=== PATIENT | female | born 1995 | race Two or more races ===

== ENCOUNTER 2020-01-22 18:51 | Emergency (ER) | payer OTHER, SELFPAY ==
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
[2020-01-22 19:02] VITALS: BP 124/76; BP 125/73; PULSE 88; RESP 16; TEMP 37.1; O2SAT 97; O2SAT 99; BMI 23.0
--- NOTE | 2020-01-22 19:34 | ECG_ITS ---
Test Reason : SOB Blood Pressure : / mmHG Vent. Rate : 080 BPM Atrial Rate : 080 BPM P-R Int : 136 ms QRS Dur : 082 ms QT Int : 392 ms P-R-T Axes : 057 054 042 degrees QTc Int : 452 ms Normal sinus rhythm Normal ECG No previous ECGs available Referred By: Katerina Cosme Electronically Signed By:JANAE MARCH MD
--- NOTE | 2020-01-22 19:55 | PC.NURSE ---
Pt to CT via stretcher. Previous to transfer to imaging EKG obtained and viewed by MD. Pt AOx4, reports pain to right side of body, denies LOC, reports she feels SOB only when laying down and only when attempting to take a deep breath. Sat 97-99% on room air. Pt placed on tele, NSR.
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
[2020-01-22 20:31] VITALS: PULSE 84; RESP 15; O2SAT 100
[2020-01-22 20:32] LABS: MANUAL DIFF FLAG NO
--- NOTE | 2020-01-22 20:35 | PC.NURSE ---
Pt back from CT via stretcher, speaking in full,clear sentences. IV access obtained, labs drawn and sent. Awaiting results of labs and imaging at this time.
[2020-01-22 20:53] LABS: Basophils Percent Auto 0.3 % (0-2); Eosinophils Percent Auto 0.6 % (0-4); Hematocrit 38.3 % (37-47); Hemoglobin 13.1 g/dl (12.0-16.0); Imm Gran Abs Auto 0.02 X10*3/uL (0.00-0.03); Imm Gran Pct Auto 0.3 % (0.0-0.4); Lymphocytes Absolute Auto 1.8 X10*3/uL (1.2-4.9); Lymphocytes Percent Auto 26.9 % (20-40); Mean Corpuscular HGB Conc 34.2 g/dl (31.0-35.0); Mean Corpuscular Hemoglobin 32.2 pg (27.0-33.0); Mean Corpuscular Volume 94.1 fL (80-98); Mean Platelet Volume 10.3 fL (9.4-12.3); Monocytes Absolute Auto 0.6 X10*3/uL (0.1-1.2); Monocytes Percent Auto 8.4 % (2-11); Neutrophils Absolute Auto 4.3 X10*3/uL (2.0-8.3); Neutrophils Percent Auto 63.5 % (45-73); Platelet Count 261 X10*3/uL (160-400); Red Blood Count 4.07 X10*6/uL (4.20-5.50); Red Cell Distribution Width 11.8 % (11.0-16.0); White Blood Count 6.8 X10*3/uL (4.8-10.8)
[2020-01-22 20:57] LABS: Anion Gap 14 (12-20); Blood Urea Nitrogen 9 mg/dL (9-16); Calcium 9.1 mg/dL (8.4-10.2); Carbon Dioxide 26 mmol/L (22-29); Chloride 107 mmol/L (96-108); Creatinine Clr Calc Pharmacy 98.8; Estimated Glomerular Filt Rate > 60; Glucose Random 95 mg/dL (60-115); Magnesium 2.4 mg/dL (1.6-2.6); Potassium 4.6 mmol/l (3.3-5.1); Sodium 142 mmol/L (135-145)
[2020-01-22] MEDS: Cyclobenzaprine HCl 10 MG TABLET PO (22:16)
== END 2020-01-22 22:21 | disposition home or self-care (01) ==
PROVIDERS: Nurse Practitioner Family; Emergency Provider Emergency Medicine
DX: S39.012A Strain of muscle, fascia and tendon of lower back, initial encounter (principal); S30.0XXA Contusion of lower back and pelvis, initial encounter; S06.0X0A Concussion without loss of consciousness, initial encounter; R07.89 Other chest pain; F41.1 Generalized anxiety disorder; F43.0 Acute stress reaction; F12.90 Cannabis use, unspecified, uncomplicated; R10.2 Pelvic and perineal pain; V43.52XA Car driver injured in collision with other type car in traffic accident, initial encounter; Y93.9 Activity, unspecified; Y92.410 Unspecified street and highway as the place of occurrence of the external cause; F17.200 Nicotine dependence, unspecified, uncomplicated; Z71.6 Tobacco abuse counseling
CPT/HCPCS: 36415; 70450; 71045; 71250; 72125; 74176; 80048; 83735; 85025; 93005; 99284; 99291

== ENCOUNTER 2020-04-13 16:34 | Outpatient (REF) | payer OTHER, SELFPAY | END 2020-04-13 16:35 | disposition home or self-care (01) | LOC: HO.LAB 16:34 | PROVIDERS: Visit Provider Internal Medicine | DX: Z20.828 Contact with and (suspected) exposure to other viral communicable diseases (principal) | CPT/HCPCS: C9803; U0003 ==

== ENCOUNTER 2020-08-26 09:27 | Emergency (ER) | payer OTHER, SELFPAY ==
[2020-08-26 09:37] VITALS: BP 106/63; PULSE 80; RESP 16; TEMP 37.2; O2SAT 99; BMI 23.8
--- NOTE | 2020-08-26 10:32 | ED.GENADULT ---
HPI - General Adult General Chief complaint: General Medical Stated complaint: MULTIP COMPLAINTS Time Seen by Provider: 08/26/20 09:45 Source: patient Mode of arrival: ambulatory Limitations: no limitations History of Present Illness HPI narrative: Patient presents to ED for fever past couple of days, runny nose, body aches, and slight headache. Patient states no coughing, chest pain, shortness of breath. Related Data Previous Rx's Medication Instructions Recorded cyclobenzaprine 10 mg PO TID PRN #20 tab 01/22/20 Allergies Allergy/AdvReac Type Severity Reaction Status Date / Time amoxicillin [AMOXICILLIN] Allergy Unknown UNKNOWN, Verified 01/22/20 19:05 unsure as a child Review of Systems Review of Systems: Yes all other systems are reviewed and are negative Constitutional: Constitutional: Reports as per HPI, Reports no additional constitutional complaints, Reports body ache(s), Reports fever(s) and Reports headache(s) Eyes: Eyes: Reports as per HPI and Reports no additional eye complaints ENT: Reports system reviewed and no additional complaints, except as documented, Reports as per HPI, Reports headache(s) and Reports nasal congestion Cardiovascular: Cardiovascular: Reports as per HPI and Reports no additional cardiovascular complaints Respiratory: Respiratory: Reports as per HPI and Reports no additional respiratory complaints Gastrointestinal: Gastrointestinal: Reports as per HPI and Reports no additional gastrointestinal complaints Genitourinary: Genitourinary: Reports no additional female genitourinary complaints and Reports as per HPI Musculoskeletal: Musculoskeletal: Reports no additional musculoskeletal complaints and Reports as per HPI Neurologic: Reports system reviewed and no additional complaints, except as documented, Reports as per HPI and Reports headache(s) Psychiatric: Psychiatric: Reports no additional psychiatric complaints and Reports as per HPI [facility] Social History Social History Alcohol intake: unknown Smoking Status: Current some day smoker Smoked in Last 30 Days: No Use of substances other than those prescribed or required for medical reasons: No Substance Use Type: Marijuana Any prior treatment program specific to substance use: No Advance Directives: Yes Advance Directives Information Provided: No Advance Directives on File: No Patient : No Physical Exam Vital Signs: Vital Signs: Last Vital Signs Temp 99.0 F 08/26/20 09:37 Pulse 80 08/26/20 09:37 Resp 16 08/26/20 09:37 BP 106/63 08/26/20 09:37 Pulse Ox 99 08/26/20 09:37 Body Mass Index 23.8 Const: General: cooperative, healthy appearing, comfortable, no acute distress, well developed, alert, awake and Physically active Orientation/consciousness: patient oriented x3 HENMT: Head: Yes normal to inspection, Yes No palpable skull fracture present, Yes normocephalic and Yes atraumatic Eyes: General: appearance normal, both eyes and all related structures Neck: Neck: Yes normal visual inspection, Yes full ROM, Yes no lymphadenopathy, Yes no meningeal signs, Yes trachea midline, Yes supple and No tender Chest: Chest palpation & inspection: normal inspection of the chest and normal palpation of entire chest wall Resp: Effort & Inspection: normal respiratory effort and able to speak in complete sentences Auscultation: clear to auscultation bilaterally Cardio: Jugular venous distension: no JVD Heart sounds: S1 normal heart sound present and S2 normal heart sound present GI: Inspection: Yes normal to inspection and No abdominal wall ecchymosis Palpation (GI): Soft to palpation, not firm, nontender, no guarding and not rigid : General: No CVA tenderness and Yes no CVA tenderness Back/Spine/Pelvis: Back: no CVA tenderness, No CVA tenderness and No back tenderness Skin: General skin exam: no rashes or lesions noted and elasticity normal Neuro: General: patient oriented x3, gait normal, no meningeal signs and CN's II-XI intact bilaterally Cranial nerves: Yes CN's II-XII intact bilaterally Extrem: General: Yes normal to inspection and Yes full ROM Psych: Appearance: grossly normal, well kempt and not disheveled Course Course Course Narrative: History physical exam does not indicate meningitis. Patient vital signs stable. Patient denies any distress. Lungs are clear no indication for chest x-ray. Patient having any abdominal pain or urinary symptoms. No labs are UA ordered. Reevaluation(s) Reevaluation #1: Patient will be swabbed for COVID-19 and discharge. Patient will prefer to be called with results. Reevaluation #2: Patient was called and informed she was positive for COVID. patient informed to practice self isolation for 14 days. patient informed to return to the ED for chest pain, shortness of breath, weakness, or any other concerning symptoms. Medical Decision Making Lab Data Labs: Lab Results 08/26/20 Range/Units 10:25 Coronavirus (PCR) POSITIVE A (Negative) Influenza Type A (PCR) NEGATIVE (Negative) Influenza Type B (PCR) NEGATIVE (Negative) RSV RNA Qual (PCR) NEGATIVE (Negative) Discharge Plan Discharge Clinical Impression: Acute viral syndrome, COVID-19 Patient Disposition: Home, Self-Care Instructions: Viral Syndrome (ED), COVID-19 (Coronavirus Disease 2019) (ED) Additional Instructions: Return to the ED immediately for any chest pain, shortness of breath, neck stiffness, severe headache, photophobia, abdominal pain, urinary symptoms, or any other concerning symptoms. Your COVID swab is pending. You will be called with results. If COVID swab comes back negative and you are still symptomatic or feeling worse recommend repeat testing in 72 hours or self quarantine for 14 days. If COVID test come back positive recommend 14 days self-isolation. Prescriptions: No Action cyclobenzaprine 10 mg tablet 10 mg PO TID PRN (Reason: muscle spasm) Qty: 20 RF: 0 Stand Alone Forms: Work/School Release Interventions: ED Discharge Assessment Last Done: 08/26/20 11:02 Discharge Date/Time: 08/26/20 11:03 Print Language: Bulgarian
[2020-08-26 11:47] LABS: Influenza A PCR NEGATIVE (Negative); Influenza B PCR NEGATIVE (Negative); Resp Syncy Virus RNA Qual PCR NEGATIVE (Negative); SARS COV2 PCR INHOUSE POSITIVE (Negative)
== END 2020-08-26 11:03 | disposition home or self-care (01) ==
PROVIDERS: Physician Assistant; Emergency Provider Emergency Medicine
DX: U07.1 COVID-19 (principal); M79.10 Myalgia, unspecified site; Z79.899 Other long term (current) drug therapy; F17.200 Nicotine dependence, unspecified, uncomplicated; Z71.6 Tobacco abuse counseling
CPT/HCPCS: 0241U; 36415; 99284

== ENCOUNTER 2021-05-27 06:52 | Emergency (ER) | payer OTHER, SELFPAY ==
--- NOTE | ~2021-05-27 | XR_ITS ---
EXAMINATION: CR HAND, LEFT CLINICAL INFORMATION: Left fourth digit laceration at distal phalanx and pain. Smash injury to the left hand. COMPARISON: Contralateral right hand films from 02/13/2017. TECHNIQUE: PA, lateral, and oblique views of the left hand. FINDINGS: Soft tissue laceration over the tuft of the fourth digit is seen without evidence of radiopaque foreign body or acute fracture or dislocation. Mild soft tissue swelling about the distal phalanx of the fourth digit is seen. Otherwise unremarkable study. XR/XR hand LT min 3V IMPRESSION: Mild soft tissue swelling and soft tissue laceration over the distal phalanx of the fourth digit is seen. No radiopaque foreign body or acute fracture noted.
[2021-05-27 07:40] VITALS: BP 103/59; PULSE 91; RESP 19; TEMP 36.6; O2SAT 99; BMI 27.4
--- NOTE | 2021-05-27 08:42 | ED_ITS ---
HPI - Wound/Laceration General Chief Complaint: Wound/Laceration Stated Complaint: lac on finger @ work Time Seen by Provider: 05/27/21 08:42 Source: patient Mode of arrival: ambulatory Limitations: no limitations History of Present Illness HPI narrative: Patient is a 26 year old female presenting to the emergency department today with a left ring finger laceration. Patient states that she works at [employer] and got her left ring finger smashed in a machine. Patient denies any other injury from the incident. Patient denies any loss of consciousness from the incident. Patient denies any numbness, tingling, dizziness, lightheadedness, abdominal pain, nausea, vomiting, fever, chills, blurry vision, double vision, loss of vision, chest pain, difficulty breathing, shortness of breath, back pain, night sweats, pain with urination, increased urinary frequency, increased urinary urgency, blood in her urine or stool, syncope or a near syncopal episode, bowel incontinence, bladder incontinence, bowel retention, bladder retention, or any other complaints at this time. Onset (ago): minute(s) Location: other (left ring finger) Context: accidental Associated symptoms: none Treatments prior to arrival: bandage Related Data Previous Rx's Medication Instructions Recorded cyclobenzaprine 10 mg tablet 10 mg PO TID PRN #20 tab 01/22/20 cephalexin 500 mg capsule 500 mg PO Q6H 7 Days #28 cap 05/27/21 Allergies Allergy/AdvReac Type Severity Reaction Status Date / Time amoxicillin [AMOXICILLIN] Allergy Unknown UNKNOWN, Verified 01/22/20 19:05 unsure as a child Review of Systems Constitutional: Constitutional: Reports no additional constitutional complaints, Denies chills, Denies fever(s) and Denies night sweats Eyes: Eyes: Reports no additional eye complaints, Denies blurry vision, Denies change in vision, Denies diplopia, Denies eye discharge, Denies loss of vision and Denies eye pain ENT: Denies dizziness Cardiovascular: Cardiovascular: Reports no additional cardiovascular complaints, Denies chest pain, Denies lightheadedness, Denies Loss of Consciousness and Denies dyspnea Respiratory: Respiratory: Reports no additional respiratory complaints and Denies dyspnea Gastrointestinal: Gastrointestinal: Reports no additional gastrointestinal complaints, Denies abdominal pain, Denies melena, Denies hematochezia, Denies change in bowel habits and Denies change in stool character Genitourinary: Genitourinary: Denies hematuria, Denies urinary frequency, Denies dysuria, Denies urinary incontinence, Denies urinary hesitancy and Denies urinary urgency Musculoskeletal: Musculoskeletal: Reports no additional musculoskeletal complaints, Denies numbness and Denies tingling Integumentary/Breasts: Comments: left ring finger laceration Neurologic: Denies dizziness, Denies loss of vision, Denies numbness and Denies tingling Psychiatric: Psychiatric: Reports no additional psychiatric complaints Endocrine: Endocrine: Reports no additional endocrine complaints Hematologic/Lymphatic: Hematologic/Lymphatic: Reports no additional hematol ogic/lymphatic complaints Allergic/Immunologic: Allergic/Immunologic: Reports no additional allergic/immunologic complaints [facility] Past Medical History Attestation statement: The following information was validated with the patient. Source: old records reviewed Social History Social History Alcohol intake: unknown Substance Use Type: Marijuana Advance Directives: No Advance Directives Information Provided: No Physical Exam Vital Signs: Vital Signs: Last Vital Signs Temp 98 F 05/27/21 07:40 Pulse 91 05/27/21 07:40 Resp 19 05/27/21 07:40 BP 103/59 L 05/27/21 07:40 Pulse Ox 99 05/27/21 07:40 BMI result Body Mass Index 27.4 Const: General: cooperative, no acute distress, alert and awake Nutritional Appearance: well nourished Orientation/consciousness: patient oriented x3 Limitations: no limitations HENMT: Head: Yes normal to inspection and Yes atraumatic Ears: hearing grossly normal bilaterally and external ears normal General nose exam: Normal external nose present, no nasal discharge noted and no epistaxis Face and sinus: Yes normal facial exam, No abrasion and No laceration Mouth: Normal oral and palatal mucosa present, no drooling and no muffled voice Eyes: General: appearance normal, both eyes and all related structures Periorbital: periorbital findings normal Eyelids: Yes eyelids normal Conjunctivae: conjunctivae normal Pupils: Equal, round and reactive pupils present EOM: EOMs intact bilaterally Neck: Neck: Yes normal visual inspection, Yes full ROM and Yes no lymphadenopathy Chest: Chest palpation & inspection: normal inspection of the chest Resp: Effort & Inspection: normal respiratory effort and able to speak in complete sentences GI: Inspection: Yes normal to inspection Skin: Trauma: laceration left 4th finger linear, superficial, motor nerve function intact and sensation intact Neuro: General: patient oriented x3 and moves all extremities Cranial nerves: Yes Equal, round and reactive pupils present Cognition (Neuro): normal cognition Motor exam (neuro): 5/5 motor strength present throughout Sensory Exam: Normal double simultaneous stimulation for sensation Coordination: [id number] test normal Extrem: General: Yes normal to inspection, Yes full ROM and Yes capillary refill normal Psych: Appearance: grossly normal Mental Status: mental status grossly normal Affect: normal affect Attitude: cooperative Thought process: Normal thought process present Thought content: Normal thought content present Insight: Good insight present (Psych) MDM - Wound/Laceration MDM Narrative Medical decision making narrative: Patient is a 26 year old female presenting to the emergency department today with a left ring finger laceration. Patient's physical exam showed a 1cm superficial laceration to the tip of the left ring finger. There was no active bleeding from the laceration. Patient's PMS was intact to the left upper extremity. Patient's left hand x-ray showed no acute tori process. I explained my physical exam findings as well as all test results to the patient. I answered all questions asked by the patient. Patient was brought up to date on her tetanus. Patient's laceration was repaired, per procedure note, without incident. I stressed the importance of the patient taking her antibiotic as prescribed. I stressed the importance of the patient NOT soaking the sutured area. I stressed the importance of the patient having her sutures removed within 10-14 days. I stressed the importance of the patient following up with her primary care provider. I stressed the importance of the patient returning to the emergency department immediately if her symptoms were to worsen or if she were to develop any dizziness, shortness of breath, difficulty breathing, chest pain, blurry vision, loss of vision, nausea, vomiting, abdominal pain, fever, chills, back pain, or any other complaints. Patient verbalized agreement and understanding with this treatment plan and discharge. Differential Diagnosis Differential diagnosis: Likely laceration, abrasion and avulsion of skin Medical Records Attestation: I reviewed the patient's medical records. Imaging Data left hand x-ray: Attestation: I personally reviewed and interpreted this imaging study as follows: Radiologist's impression: EXAMINATION: CR HAND, LEFT CLINICAL INFORMATION: Left fourth digit laceration at distal phalanx and pain. Smash injury to the left hand.? COMPARISON: Contralateral right hand films from 02/13/2017.? TECHNIQUE: PA, lateral, and oblique views of the left hand. FINDINGS: Soft tissue laceration over the tuft of the fourth digit is seen without evidence of radiopaque foreign body or acute fracture or dislocation. Mild soft tissue swelling about the distal phalanx of the fourth digit is seen. Otherwise unremarkable study.? XR/XR hand LT min 3V IMPRESSION: Mild soft tissue swelling and soft tissue laceration over the distal phalanx of the fourth digit is seen. No radiopaque foreign body or acute fracture noted. Dictated By: Valerie Ohara MD Signed By: Electronically signed by Valerie Ohara MD 05/27/21 Procedures Laceration Laceration 1: Site: other (ring finger) Side (If applicable): left Size (cm): 1 Description: linear Depth: simple, single layer Local Anesthetic: lidocaine 2% and with epi Amount of anesthesia used (mL): 5 Pre-repair: irrigated extensively and deep structures intact Skin layer closed with: nylon Size (cm): 6-0 Number of sutures: 3 Technique: simple, interrupted Discharge Plan Discharge Clinical Impression: Laceration of finger Patient Disposition: Home, Self-Care Instructions: Laceration (ED), Laceration (DC), Finger Laceration (ED) Additional Instructions: Have your sutures removed in 10-14 days. Do NOT soak the sutured area. Follow up with your primary care provider. Return to the emergency department immediately if your symptoms worsen or if you develop any dizziness, shortness of breath, difficulty breathing, chest pain, blurry vision, loss of vision, nausea, vomiting, abdominal pain, fever, chills, back pain, or any other complaints. Prescriptions: New cephalexin 500 mg capsule 500 mg PO Q6H 7 Days Qty: 28 0RF No Action cyclobenzaprine 10 mg tablet 10 mg PO TID PRN (Reason: muscle spasm) Qty: 20 0RF Stand Alone Forms: Work/School Release Print Language: Pashto
[2021-05-27] MEDS: Diphth,Pertus(ACell),Tet Adult 0.5 ML SYRINGE IM (10:11)
[2021-05-27] MEDS: Lidocaine HCl 2%/Epi 1:100,000 20 ML VIAL INFILTRATI (10:12)
[2021-05-27] MEDS: Bacitracin Oint 14 GM TUBE 1 APPL TOPICAL (10:12)
== END 2021-05-27 10:24 | disposition home or self-care (01) ==
PROVIDERS: Emergency Provider Emergency Medicine Emergency Medical Services
DX: S61.215A Laceration without foreign body of left ring finger without damage to nail, initial encounter (principal); W31.89XA Contact with other specified machinery, initial encounter; Y93.89 Activity, other specified; Y92.59 Other trade areas as the place of occurrence of the external cause; Y99.0 Civilian activity done for income or pay
CPT/HCPCS: 12001; 73130; 90471; 90715; 96372; 99283; 99284

== ENCOUNTER 2021-10-21 06:36 | Emergency (ER) | payer OTHER, SELFPAY ==
--- NOTE | ~2021-10-21 | CT_ITS ---
EXAMINATION: CT BRAIN, CT CERVICAL SPINE AND CT FACIAL BONES. CLINICAL INFORMATION: Trauma. COMPARISON: None TECHNIQUE: 5 mm thin axial and reformatted 2 mm thin sagittal and coronal images of brain were obtained. Axial 3 mm thin and reformatted 2 mm thin sagittal coronal images of cervical spine were obtained. Axial 3 mm thin and reformatted 1.5 mm thin sagittal and coronal images of facial bones were obtained. DLP 1448 mGy/cm. FINDINGS: Brain: There is no acute intra-axial, extra-axial bleed, masses or midline shift. There is no acute infarction evolution. The lateral ventricles are symmetrical in size and configuration without enlargement. The munguia to white matter differentiation is maintained normal. Bone windows reveal no calvarial abnormality. Bilateral paranasal sinuses and mastoid air cells are well-aerated. Scalp soft tissues are normal. Facial bones: There is small polyp or retention cyst floor of left maxillary sinus residual sinuses are well-aerated and clear. Bony sinus james are intact. The lamina papyracea and the cribriform plate is normal. There is obstructed right ostiomeatal complex from mucoperiosteal thickening. There is mucosal thickening in the right middle meatus are polyp. The nasal bone is intact with no visible fracture. There is no maxillofacial, zygoma or orbital fracture. Bilateral optic globes and optic nerve and intraorbital space are symmetric and normal. There is minimal right preseptal right orbital soft tissue swelling. The TM joints are symmetrical and normal. There is no fracture involving the mandible. There is no periapical cyst. Premandibular soft tissues are normal. Visualized nasopharyngeal, pharyngeal and laryngeal airway is widely patent. No abnormality seen in the oral cavity except for significant artifact from the dental hardware. Cervical spine: There is mild straightening of cervical lordosis. The vertebral heights, alignment and disc heights are normal. There is no visible acute fracture, dislocation or subluxation. The craniovertebral junction and the C1-C2 alignment is normal. No visible acute fracture, dislocation or subluxation seen. The prevertebral soft tissues are normal. The lung apices are clear. CT/CT cervical spine wo con IMPRESSION: No acute intracranial process seen. There is no maxillofacial, nasal or mandibular fractures. However there is mild right periorbital preseptal soft tissue swelling. No orbital fracture or intraorbital soft tissue swelling. Mild straightening of cervical lordosis likely spasm or positional. No visible acute fracture or dislocation.
[2021-10-21 06:40] VITALS: BP 117/72; PULSE 111; RESP 18; TEMP 37.1; O2SAT 98; BMI 25.6
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
== END 2021-10-21 09:18 | disposition home or self-care (01) ==
PROVIDERS: Emergency Provider Emergency Medicine
DX: S09.90XA Unspecified injury of head, initial encounter (principal); Y04.2XXA Assault by strike against or bumped into by another person, initial encounter; Y93.9 Activity, unspecified; Y92.9 Unspecified place or not applicable; Y99.9 Unspecified external cause status
CPT/HCPCS: 70450; 70486; 72125; 99282; 99284

== ENCOUNTER 2023-04-12 09:16 | Emergency (ER) | payer SELFPAY ==
[2023-04-12 09:31] VITALS: BP 121/77; PULSE 90; RESP 18; TEMP 36.6; O2SAT 99; BMI 27.3
--- NOTE | 2023-04-12 10:11 | MHC.EDTECH ---
No answer for [facility] at [id number]
--- NOTE | 2023-04-12 11:45 | MHC.EDTECH ---
no answer at [id number]
== END 2023-04-12 11:55 | disposition left against medical advice (07) ==
LOC: HO.ED 11:54
PROVIDERS: Emergency Provider Emergency Medicine
DX: R11.0 Nausea (principal); R42 Dizziness and giddiness
CPT/HCPCS: 99281

== ENCOUNTER 2023-07-01 19:37 | Emergency (ER) | payer SELFPAY ==
[2023-07-01 19:46] VITALS: BP 149/98; PULSE 65; RESP 17; TEMP 36.7; O2SAT 98; BMI 27.5
== END 2023-07-02 00:23 | disposition left against medical advice (07) ==
PROVIDERS: Emergency Provider Emergency Medicine
DX: M79.604 Pain in right leg (principal); M79.605 Pain in left leg
CPT/HCPCS: 99281

== ENCOUNTER 2023-08-11 08:00 | Emergency (ER) | payer SELFPAY ==
[2023-08-11 08:04] VITALS: BP 110/87; PULSE 66; RESP 18; TEMP 36.6; O2SAT 98; BMI 23.8
[2023-08-11 08:19] LABS: MANUAL DIFF FLAG NO
[2023-08-11 08:21] LABS: Basophils Percent Auto 0.2 % (0-2); Eosinophils Percent Auto 0.1 % (0-4); Hematocrit 39.8 % (37.0-47.0); Hemoglobin 13.8 g/dl (12.0-16.0); Imm Gran Abs Auto 0.04 X10*3/uL (0.00-0.03); Imm Gran Pct Auto 0.3 % (0.0-0.4); Lymphocytes Absolute Auto 1.7 X10*3/uL (1.2-4.9); Mean Corpuscular HGB Conc 34.7 g/dl (31.0-35.0); Mean Corpuscular Hemoglobin 31.7 pg (27.0-33.0); Mean Corpuscular Volume 91.3 fL (80.0-98.0); Mean Platelet Volume 9.9 fL (9.4-12.3); Monocytes Absolute Auto 0.4 X10*3/uL (0.1-1.2); Monocytes Percent Auto 3.1 % (2-11); Neutrophils Percent Auto 82.3 % (45-73); Platelet Count 274 X10*3/uL (160-400); Red Blood Count 4.36 X10*6/uL (4.20-5.50); Red Cell Distribution Width 12.3 % (11.0-16.0); White Blood Count 12.2 X10*3/uL (4.8-10.8)
[2023-08-11] MEDS: 0.9 % Sodium Chloride 1,000 ML 999 ML IVCONT (08:22)
[2023-08-11] MEDS: ondansetron HCL 4 MG/2 ML VIAL IVPUSH ×2 (08:22→08:50)
[2023-08-11 08:33] LABS: Alanine Aminotransferase 18 U/L (0-31); Albumin Level 4.7 g/dL (3.5-5.0); Alkaline Phosphatase 49 U/L (39-117); Anion Gap 14 (12-20); Aspartate Amino Transferase 21 U/L (5-31); Bilirubin Total 0.4 mg/dL (0.0-1.0); Blood Urea Nitrogen 15 mg/dL (9-16); Calcium 9.4 mg/dL (8.4-10.2); Carbon Dioxide 27 mmol/L (22-29); Chloride 105 mmol/L (96-108); Creatinine Clr Calc Pharmacy 102.4; Estimated Glomerular Filt Rate > 60; Glucose Random 115 mg/dL (60-115); Lipase 11 U/L (8-78); Potassium 4.1 mmol/L (3.3-5.1); Sodium 142 mmol/L (135-145); Total Protein 7.9 g/dL (6.5-8.0)
--- NOTE | 2023-08-11 08:38 | ED_ITS ---
HPI - Abdominal Pain General Chief Complaint: Abdominal Pain Stated Complaint: Vomiting, nausea Time Seen by Provider: 08/11/23 08:07 Source: patient Mode of arrival: ambulatory History of Present Illness HPI narrative: 28-year-old female reports that she has had similar issues with nausea and vomiting previously, and reports that spicy food generally causes epigastric pain and discomfort, states that she was consuming alcohol yesterday but not a lot and then woke up with nausea and vomiting today associated with epigastric pain but denies any hematemesis, fevers, chills, diarrhea, urinary symptoms. Related Data Home Medications ?Medication ?Instructions ?Recorded ?Confirmed No Known Home Meds 08/31/22 08/31/22 Allergies Allergy/AdvReac Type Severity Reaction Status Date / Time amoxicillin [AMOXICILLIN] Allergy Unknown UNKNOWN, Verified 08/11/23 08:04 unsure as a child Review of Systems Review of Systems Pertinent positives and negatives as stated in HPI PMFSH Past Medical History Source: nursing notes reviewed Surgical History No pertinent past surgical history Family History Family History Mother Lupus Maternal Grandmother Lupus Father No problems noted. Social History Social History Housing: Apartment Alcohol intake: current Alcohol intake frequency: a few times a month Patient Tobacco Use Status: Current everyday Tobacco user e-Cigarette/Vaping Use: Currently Using Second Hand Smoke Exposure: No Substance Use Type: Marijuana Advance Directives: No Advance Directives Information Provided: No Do you have a plan to hurt others: No Plan service: No Current occupational status: employed Current occupation: Machine opreateor Cognitive needs: No Hearing needs: No Vision needs: No Physical Exam ED Vital Signs: Vital Signs - 24 hr 08/11/23 08:04 08/11/23 09:55 Temperature 97.9 F Pulse Rate 66 88 Respiratory Rate 18 16 Blood Pressure 110/87 105/76 Pulse Oximetry 98 100 Oxygen Delivery Method Room Air Room Air BMI result Body Mass Index 23.8 VITAL SIGNS: Reviewed. GENERAL: Well developed, well nourished, in no acute distress. HEAD: Normocephalic/atraumatic EYES: PERRLA, EOMI EARS: Ext canals without abnormality NOSE: Nares patent bilateral OROPHARYNX: no oral lesions noted, posterior pharynx clear NECK: Supple, no adenopathy LUNGS: Normal breath sounds. No adventitious sounds or accessory muscle use. SpO2<98> CARDIOVASCULAR: Regular rate and rhythm without noted murmurs ABDOMEN: Soft, epigastric discomfort, non-distended with bowel sounds. MUSCULOSKELETAL: No tenderness, deformities, or effusions noted on gross inspection. EXTREMITIES: No cyanosis, clubbing or edema. SKIN: Inspection of the skin reveals no rashes NEUROLOGIC: Alert and oriented x 4. Strength and sensation to light touch were grossly intact x 4. Medical Decision Making Medical Decision Making [facility] Narrative: 28-year-old female with history and clinical presentation, DDX: Alcoholic gastritis, pancreatitis, no clinical suspicion for intra-abdominal infection or UTI. INTERVENTION: 1 L IV fluids, Zofran, Pepcid. I reviewed all investigations and hematologic indices demonstrate a noninfectious leukocytosis likely reactive from the nausea and vomiting otherwise no anemia or thrombocytopenia. Chemistry indices negative for AMAURY/electrolyte or liver enzyme derangements. Urinalysis negative for UTI in ketones reflective of likely component of dehydration. On re-evaluation patient is feeling much better, tolerating oral intake and was provided with GI cocktail and Carafate and is feeling much improved. She is otherwise discharged. Differential Diagnosis Differential Diagnoses: The differential diagnosis associated with the presentation includes Please see the discussion above Admission/Observation Consideration of admission/observation: Escalation of care including admission/observation considered Please see the discussion above Lab Data [facility] Lab Attestation statement: I reviewed the patient's lab results. Please see the discussion above 08/11/23 08:15 08/11/23 08:15 Labs: Lab Results 08/11/23 08/11/23 Range/Units 08:15 10:39 WBC 12.2 H (4.8-10.8) X10*3/uL RBC 4.36 (4.20-5.50) X10*6/uL Hgb 13.8 (12.0-16.0) g/dl Hct 39.8 (37.0-47.0) % MCV 91.3 (80.0-98.0) fL MCH 31.7 (27.0-33.0) pg MCHC 34.7 (31.0-35.0) g/dl RDW 12.3 (11.0-16.0) % Plt Count 274 (160-400) X10*3/uL MPV 9.9 (9.4-12.3) fL Immature Gran % (Auto) 0.3 (0.0-0.4) % Neut % (Auto) 82.3 H (45-73) % Lymph % (Auto) 14.0 L (20-40) % Gilchrist % (Auto) 3.1 (2-11) % Eos % (Auto) 0.1 (0-4) % Baso % (Auto) 0.2 (0-2) % Lymph # (Auto) 1.7 (1.2-4.9) X10*3/uL Gilchrist # (Auto) 0.4 (0.1-1.2) X10*3/uL Eos # (Auto) 0.0 (0.0-0.4) X10*3/uL Baso # (Auto) 0.0 (0.0-0.2) X10*3/uL Abs Immat Gran (auto) 0.04 H (0.00-0.03) X10*3/uL Absolute Neuts (auto) 10.0 H (2.0-8.3) x10*3/uL Absolute Nucleated RBC 0.000 (0.0-0.012) X10*3/uL Nucleated RBC % (auto) 0.0 (0.0-0.2) /100WBC Sodium 142 (135-145) mmol/L Potassium 4.1 (3.3-5.1) mmol/L Chloride 105 (96-108) mmol/L Carbon Dioxide 27 (22-29) mmol/L Anion Gap 14 (12-20) BUN 15 (9-16) mg/dL Creatinine 0.67 (0.5-1.4) mg/dL Estim Creat Clear Calc 102.4 Estimated GFR > 60 Random Glucose 115 (60-115) mg/dL Calcium 9.4 (8.4-10.2) mg/dL Total Bilirubin 0.4 (0.0-1.0) mg/dL AST 21 (5-31) U/L ALT 18 (0-31) U/L Alkaline Phosphatase 49 (39-117) U/L Total Protein 7.9 (6.5-8.0) g/dL Albumin 4.7 (3.5-5.0) g/dL Lipase 11 (8-78) U/L Urine Color Yellow Urine Appearance Clear Urine pH 8.0 (5.0-9.0) Ur Specific [place] >= 1.030 H (1.005-1.025) Urine Protein 30 (1+) H (Neg-Trace) mg/dL Urine Glucose (UA) Negative (Negative) mg/dL Urine Ketones >=160 (Negative) mg/dL Urine Blood Negative (Negative) Urine Nitrite Negative (Negative) Ur Leukocyte Esterase Negative (Negative) External Record Review External record reviewed: Outpatient record and Prior outpatient labs Medications Administered Discontinued Medications Generic Name Dose Route Start Last Admin Trade Name Freq PRN Reason Stop Dose Admin Al Hydroxide/Mg Hydroxide 30 ml 08/11/23 09:55 08/11/23 10:20 Magnesium Hydrox/Alum Hydrox 30 Ml Oral.Susp PO 08/11/23 09:56 30 ml ONCE ONE Administration Famotidine 20 mg 08/11/23 08:30 08/11/23 08:50 Famotidine/Pf 20 Mg/2 Ml Vial IVPUSH 08/11/23 08:31 20 mg ONCE ONE Administration Sodium Chloride 1,000 mls @ 999 mls/hr 08/11/23 08:30 08/11/23 09:50 Ns IVCONT 08/11/23 09:30 Infused .Q1H1M HENRIK Infusion Lidocaine HCl 10 ml 08/11/23 09:55 08/11/23 10:20 Lidocaine Hcl Viscous 2 % 15 Ml Solution MUCOUS MEM 08/11/23 09:56 10 ml ONCE ONE Administration Ondansetron HCl 4 mg 08/11/23 08:18 08/11/23 08:22 Ondansetron Hcl 4 Mg/2 Ml Vial IVPUSH 08/11/23 08:19 4 mg ONCE ONE Administration Ondansetron HCl 4 mg 08/11/23 08:40 08/11/23 08:50 Ondansetron Hcl 4 Mg/2 Ml Vial IVPUSH 08/11/23 08:41 4 mg ONCE ONE Administration Sucralfate 1 gm 08/11/23 09:55 08/11/23 10:20 Sucralfate Oral Suspension 1 Gm/10 Ml Oral.Susp PO 08/11/23 09:56 1 gm ONCE ONE Administration Critical Care Time Critical Care Time Critical Care Time: Yes Total Critical Care Time: 30 Attestation: I personally attest to this time spent taking care of the patient. Discharge Plan Discharge Clinical Impression: Alcoholic gastritis Patient Disposition: Home, Self-Care Instructions: Gastritis (ED), Diet for Stomach Ulcers and Gastritis (ED) Additional Instructions: Recommend [id number] famotidine, daily, for stomach upset and also attempt to avoid all carbonated/caffeinated/fried/spicy foods until stomach has improved. Prescriptions: No Action No Known Home Meds Print Language: Croatian
[2023-08-11] MEDS: Famotidine/PF 20 MG/2 ML VIAL IVPUSH (08:50)
--- NOTE | 2023-08-11 09:34 | PC.NURSE ---
PT STATES NAUSEA AND PAIN HAVE SUBSIDED. TRIALING PO, AWAITING URINE SPECIMEN.
[2023-08-11 09:55] VITALS: BP 105/76; PULSE 88; RESP 16; O2SAT 100
[2023-08-11] MEDS: Magnesium Hydrox/Alum Hydrox 30 ML ORAL.SUSP PO (10:20)
[2023-08-11] MEDS: Lidocaine HCl Viscous 2 % 15 ML SOLUTION 10 ML MUCOUS MEM (10:20)
[2023-08-11] MEDS: Sucralfate Oral Suspension 1 GM/10 ML ORAL.SUSP PO (10:20)
[2023-08-11 10:49] LABS: Appearance Urine Clear; Color Urine Yellow; Glucose Urine UA Negative (Negative); Leukocyte Esterase Urine Negative (Negative); Nitrite Urine Negative (Negative); Specific Gravity - Urine >= 1.030 (1.005-1.025); UMIC TRIGGER UACC YES; Urine Blood Negative (Negative); Urine Ketones >=160 mg/dL (Negative); Urine Protein 30 (1+) mg/dL (Neg-Trace)
[2023-08-11 10:57] LABS: Bacteria Urine None Seen (None Seen); Hyaline Casts Urine 0-2 /LPF (0-2); WBC Urine 0-5 /HPF (0-5)
[2023-08-11 11:00] LABS: RBC Urine 0-2 /HPF (0-2)
[2023-08-11 11:04] VITALS: BP 105/76; PULSE 88; RESP 16; TEMP 36.8; O2SAT 100
== END 2023-08-11 11:05 | disposition home or self-care (01) ==
PROVIDERS: Emergency Provider Student in an Organized Health Care Education/Training Program
DX: K29.20 Alcoholic gastritis without bleeding (principal)
CPT/HCPCS: 36415; 80053; 81001; 83690; 85025; 96361; 96374; 96375; 99284; J2405

== ENCOUNTER 2023-12-30 11:06 | Outpatient (AMB) | payer BC, SELFPAY ==
[2023-12-30 11:32] VITALS: BP 118/70; PULSE 64; O2SAT 97; BMI 22.5
--- NOTE | 2023-12-30 11:32 | MHC.OFFWIV ---
Intake Vital Signs 12/30/23 11:32 Height 5 ft 3 in Weight 127 lb BMI 22.5 BP 118/70 Blood Pressure Location Rt brachial Position Sitting Pulse 64 Pulse Source Pulse Oximeter Pulse Oximetry (%) 97 Oxygen Delivery Method Room Air Intake Visit Reasons: EP LT calf rash Intake Note: Patient here for rash on back of both legs that started two days ago and started off very itchy and now it solares. Patient Tobacco Use Status: Current everyday Tobacco user Allergies amoxicillin [AMOXICILLIN] Allergy (Unknown, Verified 12/30/23 11:33) UNKNOWN, unsure as a child Do you need a note to return to daycare/school/sports/work: No HPI EP LT calf rash HPI Details This note is constructed using voice recognition software. While every effort has been made to ensure accuracy, wire harness design engineer errors may have been included. The patient is a 28 year old female who presents to the clinic today with rash for the past two days. At first she thought it may be poison surya due to presentation, but does not recall any exposure. She started with raised red, itchy blisters, which itching they ended up being slightly burning in sensation. She denies fevers, chills, body aches, new lotions, soaps, detergents or foods. [facility] Surgical History No pertinent past surgical history Family History Mother Lupus Maternal Grandmother Lupus Father No problems noted. Social History Housing: Apartment Alcohol intake: current Alcohol intake frequency: a few times a month Patient Tobacco Use Status: Current everyday Tobacco user e-Cigarette/Vaping Use: Currently Using Second Hand Smoke Exposure: No Substance Use Type: Marijuana service: No Current occupational status: employed Current occupation: Machine opreateor Cognitive needs: No Hearing needs: No Vision needs: No Female Reproductive History Menstrual Age of Menarche: 9 Review of Systems Const All systems reviewed & are unremarkable except as noted in HPI and below Physical Exam Vital Signs: Last Vital Signs Pulse 64 12/30/23 11:32 BP 118/70 12/30/23 11:32 Pulse Ox 97 12/30/23 11:32 Oxygen Delivery Method Room Air 12/30/23 11:32 BMI result Body Mass Index 22.5 Const General: cooperative, healthy appearing, comfortable and no acute distress Orientation/consciousness: patient oriented x3 Limitations: no limitations HEENT Head: Yes normal to inspection Eyes General: appearance normal, both eyes and all related structures Resp Effort & Inspection: normal respiratory effort and able to speak in complete sentences Skin Other: A streaky, linear maculopapular rash with crusted lesions on each lower extremity on the calf bilaterally. Neuro General: patient oriented x3 Assessment & Plan Assessment & Plan (1) Poison surya dermatitis: Code(s): L23.7 - Allergic contact dermatitis due to plants, except food Plan: Topical steroid cream clobetasol prescribed for symptomatic management. Advised patient to continue to monitor for improvement versus any worsening. Advised follow up as needed. Plan See above for full details and plan. Medications: New clobetasol 0.05% 1 appl topical BID 1 week 15 grams 0RF Coding Level of Care Code Est Pt Level 3 (42740) Diagnoses Poison surya dermatitis L23.7
== END 2023-12-30 12:22 | disposition home or self-care (01) ==
PROVIDERS: Visit Provider Registered Nurse
DX: L23.7 Allergic contact dermatitis due to plants, except food (principal)

== ENCOUNTER → 2023-12-30 11:06 | Outpatient (BNVA) | payer BC, SELFPAY | DX: L23.7 Allergic contact dermatitis due to plants, except food (principal) ==

== ENCOUNTER → 2024-05-09 10:46 | Outpatient (BNVA) | payer BC, SELFPAY | DX: L03.116 Cellulitis of left lower limb (principal); Z23 Encounter for immunization | CPT/HCPCS: 90471; 90715 ==

== ENCOUNTER 2024-05-15 18:22 | Emergency (ER) | payer BC, SELFPAY ==
--- NOTE | 2024-05-15 18:31 | ED.EYEPROB ---
HPI - Eye Problem General Chief complaint: Eye Problems Stated complaint: R eye swelling Time Seen by Provider: 05/15/24 18:37 Source: patient Mode of arrival: ambulatory Limitations: no limitations History of Present Illness ED Provider: Malou Acevedo APRN HPI Narrative: 29yo female here with complaints of right upper eyelid swelling with waking. No known injury or trauma. Does not use corrective lenses or glasses. No vision changes, drainage, itching. Related Data Previous Rx's ?Medication ?Instructions ?Recorded doxycycline hyclate 100 mg capsule 100 mg PO BID 7 days #14 caps 05/09/24 prednisone 20 mg tablet 20 mg PO DAILY #5 tabs 05/09/24 erythromycin 5 mg/gram (0.5 %) eye 0.5 inch ophthalmic (eye) BID #3.5 05/15/24 ointment grams sulfamethoxazole 800 1 tab PO BID #14 tabs 05/15/24 mg-trimethoprim 160 mg tablet (Bactrim DS) Allergies Allergy/AdvReac Type Severity Reaction Status Date / Time amoxicillin [AMOXICILLIN] Allergy Unknown UNKNOWN, Verified 05/15/24 18:33 unsure as a child Review of Systems Review of Systems: Yes all other systems are reviewed and are negative Constitutional: Constitutional: Reports no additional constitutional complaints, Denies body ache(s), Denies chills, Denies fever(s), Denies headache(s) and Denies weakness Eyes: Eyes: Reports no additional eye complaints, Denies change in vision, Denies eye discharge, Denies irritation, Denies eye pain, Denies requires corrective lenses and Denies photophobia ENT: Reports system reviewed and no additional complaints, except as documented, Denies dizziness, Denies headache(s), Denies nasal congestion, Denies nasal discharge and Denies neck pain Cardiovascular: Cardiovascular: Reports no additional cardiovascular complaints, Denies chest pain, Denies leg edema and Denies dyspnea Respiratory: Respiratory: Reports no additional respiratory complaints, Denies cough and Denies dyspnea Gastrointestinal: Gastrointestinal: Reports no additional gastrointestinal complaints, Denies abdominal pain, Denies diarrhea, Denies nausea and Denies vomiting Genitourinary: Genitourinary: Reports no additional female genitourinary complaints and Denies urinary incontinence Musculoskeletal: Musculoskeletal: Reports no additional musculoskeletal complaints, Denies back pain, Denies arthralgias, Denies joint swelling, Denies neck pain, Denies numbness and Denies tingling Integumentary/Breasts: Skin/Breast: Reports system reviewed and no additional complaints, except as docu and Denies rash Neurologic: Reports system reviewed and no additional complaints, except as documented, Denies Abnormal speech present, Denies dizziness, Denies headache(s), Denies numbness, Denies tingling and Denies weakness PMFSH Past Medical History Attestation statement: The following information was validated with the patient. Source: old records reviewed and nursing notes reviewed Surgical History No pertinent past surgical history Family History Family History Mother Lupus Maternal Grandmother Lupus Father No problems noted. Social History Social History Housing: Apartment Alcohol intake: current Alcohol intake frequency: a few times a month Patient Tobacco Use Status: Current everyday Tobacco user e-Cigarette/Vaping Use: Currently Using Second Hand Smoke Exposure: No Substance Use Type: Marijuana Advance Directives: No Advance Directives Information Provided: No service: No Current occupational status: employed Current occupation: Machine opreateor Cognitive needs: No Hearing needs: No Vision needs: No Physical Exam Vital Signs: Vital Signs: Last Vital Signs Temp 98.3 F 05/15/24 18:32 Pulse 79 05/15/24 18:32 Resp 18 05/15/24 18:32 BP 97/54 L 05/15/24 18:32 Pulse Ox 100 05/15/24 18:32 O2 Del Method Room Air 05/15/24 18:32 BMI result Body Mass Index 25.1 Const: General: cooperative, healthy appearing, comfortable and no acute distress Orientation/consciousness: patient oriented x3 Limitations: no limitations HEENT: Head: Yes normal to inspection Ears: hearing grossly normal bilaterally and TM's normal bilaterally General nose exam: Normal external nose present Face and sinus: Yes normal facial exam Mouth: Normal oral and palatal mucosa present Throat: Yes posterior oropharynx normal, Yes tonsils normal and Yes uvula midline Eyes: General: appearance normal, both eyes and all related structures Visual Khoury: normal visual khoury by confrontation Alignment and Position: alignment normal Periorbital: periorbital findings abnormal (Mild erythema/swelling just superior to eyelid but not crossing over eyebro) Eyelids: Yes eyelid abnormality (right upper eyelid erythema/swelling across entire eyelod) Conjunctivae: conjunctivae normal Sclerae: sclerae normal Corneas: corneas normal Pupils: Equal, round and reactive pupils present EOM: EOMs intact bilaterally Direct Ophthalmoscopy: No photophobia Neck: Neck: Yes normal visual inspection, Yes full ROM, Yes no lymphadenopathy and Yes no meningeal signs Chest: Chest palpation & inspection: normal inspection of the chest Resp: Effort & Inspection: normal respiratory effort Auscultation: clear to auscultation bilaterally Cardio: Rate: regular rate Rhythm: regular rhythm Peripheral pulses: Peripheral pulses 2+ throughout GI: Inspection: Yes normal to inspection Palpation (GI): Soft to palpation and nontender Auscultation: normal bowel sounds Back/Spine/Pelvis: Thoracic/Lumbar Spine: thoracic and lumbar spine normal to inspection Skin: General skin exam: no rashes or lesions noted Neuro: General: patient oriented x3, no meningeal signs, no focal motor deficits and normal sensation to monofilament Cranial nerves: Yes Equal, round and reactive pupils present Cognition (Neuro): normal cognition Speech: No Abnormal speech present Gait exam (Neuro): Normal gait present Motor exam (neuro): 5/5 motor strength present throughout Extrem: General: Yes normal to inspection Medical Decision Making Medical Decision Making MDM Narrative: 29yo female here with complaints of right upper eyelid swelling with waking. No known injury or trauma. Does not use corrective lenses or glasses. No vision changes, drainage, itching. Right upper eyelid swelling/erythema with extension just superiorly to eyebrow. No extension around the eye. Denies vision changes. EOM intact. PERRLA. Likely hordelum with ?preseptal cellulitis. Low suspician for orbital cellulitis based on clinical exam and HPI. Will discharge home with antibiotic/topical erythromycin (Unsure of allergy to PCN as it was as a child) Differential Diagnosis Differential Diagnoses: The differential diagnosis associated with the presentation includes Low suspicion for foreign body, corneal abrasion, orbital cellulitis, acute glaucoma Admission/Observation Consideration of admission/observation: Escalation of care including admission/observation considered Prescription Management I considered prescription management with: Antibiotic Discharge Plan Discharge Clinical Impression: Hordeolum externum of right upper eyelid, Preseptal cellulitis of right upper eyelid Patient Disposition: Home, Self-Care Instructions: Stángel (ED), Periorbital Cellulitis in Adults (ED) Additional Instructions: Warm compresses 3-4 times daily return for pain with eye movement, vision changes Prescriptions: New erythromycin 5 mg/gram (0.5 %) ointment 0.5 inch ophthalmic (eye) BID Qty: 3.5 0RF sulfamethoxazole-trimethoprim [Bactrim DS] 800-160 mg tablet 1 tab PO BID Qty: 14 0RF No Action doxycycline hyclate 100 mg capsule 100 mg PO BID 7 Days Qty: 14 0RF prednisone 20 mg tablet 20 mg PO DAILY Qty: 5 0RF Referrals: ED Physician,Generic [Physician] - 1 week Print Language: [place] African
[2024-05-15 18:32] VITALS: BP 97/54; PULSE 79; RESP 18; TEMP 36.8; O2SAT 100; BMI 25.1
[2024-05-15 18:54] VITALS: BP 97/54; PULSE 79; RESP 18; TEMP 36.8; O2SAT 100
== END 2024-05-15 18:55 | disposition home or self-care (01) ==
PROVIDERS: Emergency Provider Emergency Medicine
DX: H00.011 Hordeolum externum right upper eyelid (principal); L03.213 Periorbital cellulitis; H57.11 Ocular pain, right eye
CPT/HCPCS: 99282; 99283

== ENCOUNTER 2024-12-23 07:22 | Emergency (ER) | payer OTHER, BC, SELFPAY ==
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
[2024-12-23 07:36] VITALS: BP 103/70; PULSE 91; RESP 18; TEMP 36.7; O2SAT 100; BMI 23.0
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
[2024-12-23 10:21] VITALS: BP 103/70; PULSE 91; RESP 18; TEMP 36.7; O2SAT 100
[2024-12-23 10:22] VITALS: BP 95/62; PULSE 84; RESP 18; O2SAT 100
== END 2024-12-23 10:22 | disposition home or self-care (01) ==
PROVIDERS: Emergency Provider Emergency Medicine
DX: S80.02XA Contusion of left knee, initial encounter (principal); S80.01XA Contusion of right knee, initial encounter; V43.52XA Car driver injured in collision with other type car in traffic accident, initial encounter; Y93.89 Activity, other specified; Y92.9 Unspecified place or not applicable; Y99.0 Civilian activity done for income or pay; M54.2 Cervicalgia; M25.562 Pain in left knee; M25.561 Pain in right knee
CPT/HCPCS: 73564; 96372; 99283; 99284; J1885

== ENCOUNTER → 2024-12-23 09:20 | Outpatient (BNV) | payer BC, SELFPAY | PROVIDERS: Emergency Provider Emergency Medicine; Visit Provider Radiology Diagnostic Radiology | DX: M25.562 Pain in left knee (principal); M25.561 Pain in right knee; V89.2XXA Person injured in unspecified motor-vehicle accident, traffic, initial encounter | CPT/HCPCS: 73564 ==

== ENCOUNTER 2025-02-18 06:12 | Emergency (ER) | payer BC, SELFPAY ==
--- NOTE | ~2025-02-18 | XR_ITS ---
EXAMINATION: XR CHEST CLINICAL INFORMATION: cough, chest pain COMPARISON: X-ray 01/22/2020 TECHNIQUE: 2 views of the chest were obtained. FINDINGS: The cardiomediastinal silhouette is within normal limits. The lungs are well expanded. There is no focal consolidation, edema, or effusion. No pneumothorax. No acute osseous abnormality. XR/XR chest 2V IMPRESSION: No acute cardiopulmonary findings. Electronically signed by: Ryan Frausto MD 02/18/2025 07:53 AM EST
--- NOTE | 2025-02-18 06:13 | ECG_ITS ---
Test Reason : cp Blood Pressure : */* mmHG Vent. Rate : 72 BPM Atrial Rate : 72 BPM P-R Int : 136 ms QRS Dur : 84 ms QT Int : 402 ms P-R-T Axes : 64 65 51 degrees QTcB Int : 440 ms Normal sinus rhythm Normal ECG When compared with ECG of 22-Jan-2020 19:35, No significant change was found Referred By: Generic ED Physician Electronically Signed By: Jean Martinez
[2025-02-18 06:18] VITALS: BP 96/54; PULSE 80; RESP 20; TEMP 36.4; O2SAT 99; BMI 23.8
--- OUTSIDE RECORDS SUMMARY | 2025-02-18 06:29 | XMS_ITS | Encounter Summary ---
Author Organization [facility] Address [address] [place] [address] Phone Care Team Providers Care Flight Operations Inspector Name Role Phone Aleksandra Garcia DO Primary Care Provider [phone] Encounter Details Date Type Department Care Team (Late st Contact Info) Description 05/15/2013 Documentation [facility] [address] [place] [address] Family Medicine, Physician [address] [place], [place] [id number] Social History Tobacco Use Types Packs/Day Years Used Date Smoking Tobacco: Never Assessed Comments Unknown Sex and Gender Information Value Date Recorded Sex Assigned at Not on file Legal Sex Female 4:44 PM EDT Gender Identity Not on file Sexual Orientation Not on file documented as of this encounter Plan of Treatment Not on file documented as of this encounter Visit Diagnoses Not on filedocumented in this encounter Care Teams Flight Operations Inspector Relationship Specialty Start Date End Date Aleksandra Garcia DO [address] [place] [address] PCP - General 11/23/16 09/20/22 documented as of this encounter
--- OUTSIDE RECORDS SUMMARY | 2025-02-18 06:29 | XMS_ITS | Clinical Summary ---
Author Organization [facility] Address [address] [place] [address] Phone Care Team Providers Care Internal Controls Specialist Name Role Phone Unavailable Primary Care Provider Unavailabl e Immunizations Immunization Administration Dates Next Due DTP 09/12/1995, 5,1994, 995 DTaP 5 02/28/1999 HPV, Quadrivalent 07/24/2012,02/08/2011,12/31/19 10 Hep B, ped/adol 1994,1994,1994 Hib (PRP-T) 06/11/1995, 5,1994, 995 Influenza Split 02/08/2011,12/30/2009 MMR 02/28/1999,03/12/1995 Meningococcal Conj (Menactra) MCV4P 12/30/2009 OPV 02/28/1999, 5,1994, 995 Tdap 06/20/2007 Varicella 12/30/2009,02/18/1999 Family History Relation Name Status Comments Father Father: Asthma, ADD/ADHD Maternal Grandmother Materna l grandmother: Diabetes mellitus Mother Mother: Depress ion Other No family histo ry of Thrombophilia Paternal Grandfather Paterna l uncle: Strabismus Social History Tobacco Use Types Packs/Day Years Used Date Smoking Tobacco: Every Day Comments:Current every day s moker Comments Unknown Sex and Gender Information Value Date Recorded Sex Assigned at Not on file Legal Sex Female 4:44 PM EDT Gender Identity Not on file Sexual Orientation Not on file Last Filed Vital Signs Vital Sign Reading Time Taken Comments Blood Pressure 100/60 07/24/2012 12:00 AM EDT Pulse 78 12/30/2009 12:00 AM EDT Temperature 36.6 C (97.9 F) 07/24/2012 12:00 AM EDT Respiratory Rate - - Oxygen Saturation - - Inhaled Oxygen Concentration - - Weight 63 kg (139 lb) 07/24/2012 12:00 AM EDT Height 157.5 cm (5' 2 ) 07/24/2012 12:00 AM EDT Body Mass Index 25.42 07/24/2012 12:00 AM EDT Plan of Treatment Health Maintenance Due Date Last Done Comments DTaP,Tdap,and Td Vaccines (7 - Td or Tdap) 06/19/2017 06/20/2007, 02/28/1999, 09/12/1995, Additional history exists Influenza Vaccines (#1) 2024 02/08/2011, 12/30 COVID-19 Vaccine ( season) 2024 Hepatitis B Vaccines Completed 1994, 1994, 1994 HIB Vaccines Completed 06/11/1995, 09/13, 1994, Additional history exists IPV Vaccines Completed 02/28/1999, 09/13, 1994, Additional history exists MMR Vaccines Completed 02/28/1999, 03/12/1995 Meningococcal Vaccine Aged Out 12/30/2009 No pancho nino eligible based on patient's age to complete this topic Varicella Vaccines Completed 12/30/2009, 02/18/1999 HPV Vaccines Completed 07/24/2012, 01/14, 12/30/2009 Hepatitis A Vaccines Aged Out No long er eligible based on patient's age to complete this topic Men B Vaccine Aged Out No longer elig ible based on patient's age to complete this topic Pneumococcal Vaccine Aged Out No long er eligible based on patient's age to complete this topic Procedures * Due to [place] Cross[place] law, this organization might not be sharing sensitive test results. Procedure Name Priority Date/Time Associated Diagnosis Comments CHLAMYDIA AND GONORRHEA, AMPLIFIED Routine 07/25/2012 12:40 PM EDT from Last 3 Months or Most Recently Relevant to Health Maintenance Results * Due to [place] state law, this organization might not be sharing sensitive test results. * Chlamydia and Gonorrhoea, Amplified (07/25/2012 12:40 PM EDT) URINE CHLAMYDIA AMP PROBE NEGATIVE [facility] Comment: NO CHLAMYDIA TRACHOMATIS RNA DETECTED IN THIS PATIENT'S SAMPLE. (REFERENCE RANGE/NORMAL VALUE: NOT DETECTED) URINE GC AMP PROBE NEGATIVE [facility] Comment: NO NEISSERIA GONORRHOEAE RNA DETECTED IN THIS PATIENT'S SAMPLE. (REFERENCE RANGE/NORMAL VALUE: NOT DETECTED) NOTE: THIS TEST USES [facility]-MED[facility]ATED AMPLIFICATION METHOD TO DETECT rRNA FROM C.TRACHOMATIS AND N.GONORRHOEAE. A NEGATIVE RESULT DOES NOT PRECLUDE INFECTION. THE APTIMA COMBO 2 ASSAY IS NOT INTENDED FOR THE EVALUATION OF SUSPECTED SEXUAL ABUSE OR FOR OTHER MEDICO LEGAL INDICATIONS. THERAPEUTIC FAILURE OR SUCCESS CANNOT BE DETERMINED WITH THE APTIMA COMBO 2 ASSAY SINCE NUCLEIC ACID MAY PERSIST FOLLOWING APPROPRIATE ANTIMICROBIAL THERAPY. IN THE CASE OF A NEGATIVE URINE RESULT, TESTING OF AN ENDOCERVICAL (FEMALE) OR URETHRAL (MALE) SPECIMEN IS RECOMMENDED IF THERE IS HIGH CLINICAL SUSPICION OF INFECTION. 07/25/2012 12:4 0 PM EDT Narrative [facility] - 07/25/2012 12:40 PM EDT URINE CHLAMYDIA GC AMP PROBE us Aleksandra Garcia DO LAB MICROBIOLOGY - GENERAL ORDER BRENNA Final Result [facility] [address] [place] [address], [place] from Last 3 Months or Most Recently Relevant to Health Maintenance
--- OUTSIDE RECORDS SUMMARY | 2025-02-18 06:29 | XMS_ITS | Encounter Summary ---
Author Organization [facility] Address [address] [place] [address] Phone Care Team Providers Care Wheel And Caster Repairer Name Role Phone Aleksandra Garcia DO Primary Care Provider [phone] Encounter Details Date Type Department Care Team (Late st Contact Info) Description 05/15/2013 Documentation [facility] Family Medicine [address] [place] [address] Family Medicine, Physician [address] [place], [place] [id number] Social History Tobacco Use Types Packs/Day Years [...] on filedocumented in this encounter Care Teams Wheel And Caster Repairer Relationship Specialty Start Date End Date Aleksandra Garcia DO [address] [place] [address] PCP - General 11/23/16 09/20/22 documented as of this encounter
--- OUTSIDE RECORDS SUMMARY | 2025-02-18 06:29 | XMS_ITS | Encounter Summary ---
Author Organization [facility] Address [address] [place] [address] Phone Care Team Providers Care Insurance Operations Rep Name Role Phone Aleksandra Garcia DO Primary Care Provider [phone] Encounter Details Date Type Department Care Team (Late st Contact Info) Description 11/29/2016 Conversion Encounter [facility] [place] [address] [place] [address] Social History Tobacco Use Types Packs/Day Years [...] on filedocumented in this encounter Care Teams Insurance Operations Rep Relationship Specialty Start Date End Date Aleksandra Garcia DO [address] [place] [address] PCP - General 11/23/16 09/20/22 documented as of this encounter
[2025-02-18 06:42] LABS: MANUAL DIFF FLAG NO
[2025-02-18 06:44] LABS: Hematocrit 40.8 % (37.0-47.0); Hemoglobin 13.8 g/dl (12.0-16.0); Imm Gran Abs Auto 0.02 X10*3/uL (0.00-0.03); Imm Gran Pct Auto 0.3 % (0.0-0.4); Lymphocytes Absolute Auto 3.0 X10*3/uL (1.2-4.9); Mean Corpuscular HGB Conc 33.8 g/dl (31.0-35.0); Mean Corpuscular Hemoglobin 31.8 pg (27.0-33.0); Mean Corpuscular Volume 94.0 fL (80.0-98.0); NRBC Abs Auto 0.000 X10*3/uL (0.0-0.012); NRBC Pct Auto 0.0 /100WBC (0.0-0.2); Platelet Count 214 X10*3/uL (160-400); Red Blood Count 4.34 X10*6/uL (4.20-5.50); White Blood Count 7.1 X10*3/uL (4.8-10.8)
[2025-02-18 06:59] LABS: Alanine Aminotransferase 16 U/L (0-31); Albumin Level 4.7 g/dL (3.5-5.0); Alkaline Phosphatase 46 U/L (39-117); Anion Gap 12 (12-20); Aspartate Amino Transferase 22 U/L (5-31); Blood Urea Nitrogen 14 mg/dL (9-16); Calcium 8.9 mg/dL (8.4-10.2); Carbon Dioxide 19 mmol/L (22-29); Chloride 111 mmol/L (96-108); Creatinine Clr Calc Pharmacy 104.0; Estimated Glomerular Filt Rate > 60; Potassium 4.1 mmol/L (3.3-5.1); Sodium 138 mmol/L (135-145); Total Protein 7.6 g/dL (6.5-8.0)
[2025-02-18 07:06] LABS: Troponin-I High Sensitivity < 2.7 ng/L (<3.5-17.0)
--- NOTE | 2025-02-18 07:07 | ED.GENADULT ---
HPI - General Adult General Chief complaint: General Medical Stated complaint: CP Time Seen by Provider: 02/18/25 07:07 Source: patient Mode of arrival: ambulatory Limitations: no limitations History of Present Illness ED Provider: HPI narrative: 30-year-old woman, smokes marijuana, presenting with a few issues, pain with right shoulder with overhead activity after taking out heavy bag of garbage she threw it sideways and she is having shoulder pain, she also reports that she has been coughing with brown phlegm production, no fevers or chills no hemoptysis, not on control pills. Related Data Previous Rx's ?Medication ?Instructions ?Recorded doxycycline hyclate 100 mg capsule 100 mg PO BID 7 days #14 caps 05/09/24 prednisone 20 mg tablet 20 mg PO DAILY #5 tabs 05/09/24 erythromycin 5 mg/gram (0.5 %) eye 0.5 inch ophthalmic (eye) BID #3.5 05/15/24 ointment grams sulfamethoxazole 800 1 tab PO BID #14 tabs 05/15/24 mg-trimethoprim 160 mg tablet (Bactrim DS) cyclobenzaprine 5 mg tablet 5 mg PO Q8H 3 days #9 tabs 12/23/24 lidocaine 5 % topical patch 1 patch topical DAILY #15 ea 12/23/24 (Lidoderm) methylprednisolone 4 mg tablets in 4 mg PO DAILY #21 ea 02/18/25 a dose pack (Medrol (Luis)) Allergies Allergy/AdvReac Type Severity Reaction Status Date / Time amoxicillin (AMOXICILLIN) Allergy Unknown UNKNOWN, Verified 02/18/25 06:21 unsure as a child Review of Systems Constitutional: Constitutional: Reports as per [facility] Past Medical History Surgical History No pertinent past surgical history Family History Family History Mother Lupus Maternal Grandmother Lupus Father No problems noted. Social History Social History Housing: Apartment Alcohol intake: current Alcohol intake frequency: a few times a month Patient Tobacco Use Status: Current everyday Tobacco user e-Cigarette/Vaping Use: Currently Using Second Hand Smoke Exposure: No Substance Use Type: Marijuana Advance Directives: No Advance Directives Information Provided: Yes service: No Current occupational status: employed Current occupation: Machine opreateor Cognitive needs: No Hearing needs: No Vision needs: No Physical Exam ED Exam Exam: General: ?Appears of stated age ? ?PERRLA, EOMI, MMM, ? Neck: Supple, no LAD ? ?CV: RRR, no obvious murmurs appreciated ? ?Resp: ?Mild expiratory wheezing more consistent with smokers along ? Abd: ?Bowel sounds are present, no tenderness no rebound no rigidity ? ?MSK: Positive impingement signs right shoulder, no swelling distal pulses intact ? Skin: Warm, dry, intact, ? ?Neuro: ?Alert and oriented x3, moving upper and lower extremities symmetrically, no obvious facial asymmetry noted, cranial nerves 2-12 intact Vital Signs: Vital Signs - 24 hr 02/18/25 06:18 Temperature 97.6 F Pulse Rate 80 Respiratory Rate 20 Blood Pressure 96/54 L Pulse Oximetry 99 Oxygen Delivery Method Room Air BMI result Body Mass Index 23.8 Medications Administered Discontinued Medications Generic Name Dose Route Start Last Admin Trade Name Jaymeq PRN Reason Stop Dose Admin Benzonatate 100 mg 02/18/25 07:17 02/18/25 07:23 Benzonatate 100 Mg Capsule PO 02/18/25 07:18 100 mg ONCE ONE Administration Dexamethasone 6 mg 02/18/25 07:17 02/18/25 07:23 Dexamethasone 6 Mg Tablet PO 02/18/25 07:18 6 mg ONCE ONE Administration Ketorolac Tromethamine 15 mg 02/18/25 07:17 02/18/25 07:23 Ketorolac Tromethamine 15 Mg/Ml Vial IM 02/18/25 07:18 15 mg ONCE ONE Administration Medical Decision Making Medical Decision Making [facility] Narrative: 7:51 AM 02/18/2025 (Dr. Marcos Ya): Shoulder exam is consistent with a impingement, no dislocation no fracture, no evidence for septic joint, she is PERC negative, chest x-ray to evaluate for pneumonia, no risk factors for ACS, blood work viral swab reassuring. See my discharge instructions Differential Diagnosis Differential Diagnoses: The differential diagnosis associated with the presentation includes (Pneumonia, shoulder impingement, fracture of the shoulder, dislocation, PE, ACS, pneumothorax) Admission/Observation Consideration of admission/observation: Escalation of care including admission/observation considered Lab Data [facility] Lab Attestation statement: I reviewed the patient's lab results. 02/18/25 06:36 02/18/25 06:36 Labs: Lab Results 02/18/25 Range/Units 06:36 WBC 7.1 (4.8-10.8) X10*3/uL RBC 4.34 (4.20-5.50) X10*6/uL Hgb 13.8 (12.0-16.0) g/dl Hct 40.8 (37.0-47.0) % MCV 94.0 (80.0-98.0) fL MCH 31.8 (27.0-33.0) pg MCHC 33.8 (31.0-35.0) g/dl RDW 12.0 (11.0-16.0) % Plt Count 214 (160-400) X10*3/uL MPV 10.1 (9.4-12.3) fL Immature Gran % (Auto) 0.3 (0.0-0.4) % Neut % (Auto) 45.1 (45-73) % Lymph % (Auto) 43.0 H (20-40) % [place] % (Auto) 8.6 (2-11) % Eos % (Auto) 2.7 (0-4) % Baso % (Auto) 0.3 (0-2) % Lymph # (Auto) 3.0 (1.2-4.9) X10*3/uL [place] # (Auto) 0.6 (0.1-1.2) X10*3/uL Eos # (Auto) 0.2 (0.0-0.4) X10*3/uL Baso # (Auto) 0.0 (0.0-0.2) X10*3/uL Abs Immat Gran (auto) 0.02 (0.00-0.03) X10*3/uL Absolute Neuts (auto) 3.2 (2.0-8.3) x10*3/uL Absolute Nucleated RBC 0.000 (0.0-0.012) X10*3/uL Nucleated RBC % (auto) 0.0 (0.0-0.2) /100WBC Sodium 138 (135-145) mmol/L Potassium 4.1 (3.3-5.1) mmol/L Chloride 111 H (96-108) mmol/L Carbon Dioxide 19 L (22-29) mmol/L Anion Gap 12 (12-20) BUN 14 (9-16) mg/dL Creatinine 0.62 (0.5-1.4) mg/dL Estim Creat Clear Calc 104.0 Estimated GFR > 60 Random Glucose 84 (60-115) mg/dL Calcium 8.9 (8.4-10.2) mg/dL Total Bilirubin 0.4 (0.0-1.0) mg/dL AST 22 (5-31) U/L ALT 16 (0-31) U/L Alkaline Phosphatase 46 (39-117) U/L Troponin I High Sens < 2.7 (<3.5-17.0) ng/L Total Protein 7.6 (6.5-8.0) g/dL Albumin 4.7 (3.5-5.0) g/dL COVID-19 (NAI) Negative (Negative) COVID-19 Clin Com See Note Influenza Type A (TIBURCIO) Negative (Negative) Influenza Type B (TIBURCIO) Negative (Negative) Influenza A & B Note See Note Independent Interpretation I performed an independent interpretation of an: Plain X-Ray (My independent chest xray interpretation: Lungs: Lungs are clear bilaterally without evidence of focal consolidation, pleural effusion, or pneumothorax. Cardiac silhouette is unremarkable, no obvious mediastinal widening, no obvious bony abnormalities such as fractures. Impression: Normal chest X-r) Radiology Impression Discussion of test interpretation with radiology: I have reviewed the radiologist's reading. Discharge Plan Discharge Clinical Impression: Impingement of right shoulder, Productive cough Additional Instructions: I recommend big bag of ice to right shoulder every day for 20 minutes you can also look into getting capsaicin ointment then rub over the shoulder it is hot but it is very hopeful when inflammation, and continue with steroids starting tomorrow, steroids we will also help to clear the cough, I recommend that you hold off smoking until what I feel is bronchitis resolves, chest x-ray without any evidence of infection. Follow up with the PCP any other issues or concerns come back to the ER Prescriptions: New methylprednisolone [Medrol (Luis)] 4 mg tablets,dose pack 4 mg PO DAILY Qty: 21 0RF Rx Instructions: Day 1: 24 mg on day 1 administered as 8 mg before breakfast, 4 mg after lunch, 4 mg after supper, and 8 mg at bedtime or 24 mg as a single dose or divided into 2 or 3 doses upon initiation. Day 2: 20 mg on day 2 administered as 4 mg before breakfast, 4 mg after lunch, 4 mg after supper, and 8 mg at bedtime. Day 3: 16 mg on day 3 administered as 4 mg before breakfast, 4 mg after lunch, 4 mg after supper, and 4 mg at bedtime. Day 4: 12 mg on day 4 administered as 4 mg before breakfast, 4 mg after lunch, and 4 mg at bedtime. Day 5: 8 mg on day 5 administered as 4 mg before breakfast and 4 mg at bedtime. Day 6: 4 mg on day 6 administered as 4 mg before breakfast. No Action erythromycin 5 mg/gram (0.5 %) ointment 0.5 inch ophthalmic (eye) BID Qty: 3.5 0RF sulfamethoxazole-trimethoprim [Bactrim DS] 800-160 mg tablet 1 tab PO BID Qty: 14 0RF cyclobenzaprine 5 mg tablet 5 mg PO Q8H 3 Days Qty: 9 0RF lidocaine [Lidoderm] 5 % adhesive patch,medicated 1 patch topical DAILY Qty: 15 0RF Rx Instructions: leave on most painful area for up to 12 hrs doxycycline hyclate 100 mg capsule 100 mg PO BID 7 Days Qty: 14 0RF prednisone 20 mg tablet 20 mg PO DAILY Qty: 5 0RF Print Language: Vincentian
[2025-02-18 07:08] LABS: IDNOW Serial# 55D5AD1C; Influenza B2 Negative (Negative)
[2025-02-18 07:09] LABS: COVID-19 Test Negative (Negative); IDNOW Serial# 58CA691E
[2025-02-18 07:56] VITALS: BP 107/74; PULSE 75; RESP 18; TEMP 37.1; O2SAT 100
[2025-02-18 08:26] VITALS: BP 107/74; PULSE 75; RESP 18; TEMP 37.1; O2SAT 100
== END 2025-02-18 08:26 | disposition home or self-care (01) ==
PROVIDERS: Emergency Provider Emergency Medicine
DX: M75.41 Impingement syndrome of right shoulder (principal); R07.9 Chest pain, unspecified; M25.511 Pain in right shoulder; Z03.818 Encounter for observation for suspected exposure to other biological agents ruled out
CPT/HCPCS: 71046; 80053; 84484; 85025; 87502; 87635; 93005; 96372; 99284; J1885; J8540

== ENCOUNTER → 2025-02-18 06:13 | Outpatient (BNV) | payer BC, SELFPAY | PROVIDERS: Emergency Provider Emergency Medicine; Visit Provider Internal Medicine Cardiovascular Disease | DX: R07.9 Chest pain, unspecified (principal) | CPT/HCPCS: 93010 ==

== ENCOUNTER → 2025-02-18 07:30 | Outpatient (BNV) | payer BC, SELFPAY | PROVIDERS: Emergency Provider Emergency Medicine; Visit Provider Radiology Diagnostic Ultrasound | DX: R05.9 Cough, unspecified (principal); R07.9 Chest pain, unspecified | CPT/HCPCS: 71046 ==